=== PATIENT | male | born 1995 | race Caucasian/White ===

== ENCOUNTER 2017-05-03 10:46 | Emergency (ER) | payer MEDICAID ==
[~2017-05-03] VITALS: Ht 175.3 cm; Wt 108.0 kg
[2017-05-03 13:00] VITALS: BP 122/66
== END 2017-05-03 15:43 | disposition home or self-care (01) ==
LOC: ER 12:22
DX: S63.501A Unspecified sprain of right wrist, initial encounter (principal); B35.1 Tinea unguium; X50.0XXA Overexertion from strenuous movement or load, initial encounter; Y93.89 Activity, other specified; Y92.89 Other specified places as the place of occurrence of the external cause; Y99.8 Other external cause status
CPT/HCPCS: 29125; 99283

== ENCOUNTER 2024-01-22 16:24 | Emergency (ER) | payer SELFPAY ==
[~2024-01-22] VITALS: Ht 177.8 cm; Wt 105.0 kg
[~2024-01-22 16:24] MED LIST: ACET-2708 MT; BO1 TP; IBUP-2028 MT
[2024-01-22 16:44] VITALS: O2SAT 98
[2024-01-22] MEDS ORDERED: GRIS500T6 MT (19:51)
[2024-01-22 20:16] VITALS: BP 138/78; PULSE 82; RESP 12; TEMP 98.2
== END 2024-01-22 20:26 | disposition home or self-care (01) ==
LOC: ER 17:24
DX: B35.4 Tinea corporis (principal); R56.9 Unspecified convulsions
CPT/HCPCS: 99283